=== PATIENT | female | born 1930 | race Two or more races ===

== ENCOUNTER 2017-09-29 11:27 | Emergency (ER) | payer OTHER ==
[~2017-09-29] VITALS: Ht 167.6 cm; Wt 73.5 kg
[2017-09-29] MEDS ORDERED: METFORMIN HCL850 MG (11:48)
[2017-09-29] MEDS ORDERED: GLIPIZIDE5 MG (11:48)
[2017-09-29] MEDS ORDERED: COZAAR50 MG (11:49)
[2017-09-29] MEDS ORDERED: SINGULAIR 4MG4 MG (11:49)
== END 2017-09-29 19:06 | disposition home or self-care (01) ==
LOC: ER 11:27 → CPU-OBS 12:13 → ER 12:13
DX: R07.89 Other chest pain (principal); R06.02 Shortness of breath; F41.9 Anxiety disorder, unspecified

== ENCOUNTER 2018-03-20 12:05 | Outpatient (CLI) | payer OTHER ==
[~2018-03-20 12:05] MED LIST: COZAAR50 MG; GLIPIZIDE5 MG; METFORMIN HCL850 MG; SINGULAIR 4MG4 MG
== END 2018-03-20 12:07 | disposition home or self-care (01) ==
LOC: SONOGRAMA 12:05
DX: R22.1 Localized swelling, mass and lump, neck (principal)

== ENCOUNTER → 2018-08-23 | Emergency (ER) | payer OTHER ==
[~2018-08-23] VITALS: Ht 162.6 cm; Wt 73.5 kg
[~2018-08-23] MED LIST changes: +ADVAIR HFA 230/12 GM; +ATROVENT HFA12.9 GM; +CILOSTAZOL50 MG; +DILTIAZEM HCL30 MG; +GABAPENTIN100 MG; +GLIMEPIRIDE4 MG; +LASIX20 MG; +PROTONIX40 M1; +SPIRIVA RESPIMAT4 G1; +ZYRTEC10 M3
== END | disposition home or self-care (01) ==
LOC: ER 15:43
DX: J40 Bronchitis, not specified as acute or chronic (principal); J45.998 Other asthma; R06.02 Shortness of breath; J11.1 Influenza due to unidentified influenza virus with other respiratory manifestations

== ENCOUNTER 2019-02-05 18:56 | Emergency (ER) | payer OTHER ==
[~2019-02-05] VITALS: Ht 167.6 cm; Wt 72.1 kg
== END 2019-02-05 23:59 | disposition home or self-care (01) ==
LOC: ER 18:56 → CPU-OBS 19:00 → ER 23:59
DX: I16.0 Hypertensive urgency (principal); I10 Essential (primary) hypertension; R07.89 Other chest pain

== ENCOUNTER 2019-06-06 15:06 | Emergency (ER) | payer OTHER ==
[~2019-06-06] VITALS: Ht 167.6 cm; Wt 64.9 kg
[2019-06-06] MEDS ORDERED: PLAVIX75 MG (15:49)
== END 2019-06-06 21:53 | disposition home or self-care (01) ==
LOC: ER 15:06 → CPU-OBS 17:16 → ER 17:16
DX: R07.89 Other chest pain (principal)